=== PATIENT | female | born 1965 ===

== ENCOUNTER 2021-08-18 12:10 | Outpatient (CLI) | payer OTHER | END 2021-08-18 12:11 | disposition home or self-care (01) | LOC: PF 12:10 | PROVIDERS: ATTEND Internal Medicine | DX: J45.909 Unspecified asthma, uncomplicated (principal); I10 Essential (primary) hypertension; K57.30 Diverticulosis of large intestine without perforation or abscess without bleeding | CPT/HCPCS: 94010; 94729 ==